=== PATIENT | male | born 1985 | race American Indian/Alaskan Native ===

== ENCOUNTER 2019-12-19 22:39 | Emergency (ER) | payer BC ==
[2019-12-20] MEDS ORDERED: dexAMETHasone 20 MG/5 ML VIAL IM ONE (01:57)
[2019-12-20] MEDS ORDERED: IBUPROFEN 800 MG TAB PO ONE (01:57)
[2019-12-20] MEDS ORDERED: AMOXICILLIN/K CLAV 875/125MG TAB PO ONE (01:57)
--- NOTE | 2019-12-20 02:32 | Emergency Department Report ---
- General Chief Complaint: Upper Respiratory Infection Stated Complaint: FEVER/COUGH Time Seen by Provider: 12/20/19 01:57 Source: patient Mode of arrival: Ambulatory Limitations: No Limitations - History of Present Illness Initial Comments: pt is a 34 y/o aam who presents for noc fever sore throat, and sinus pain presure. pt denies dizziness , no light headedness, no n/V , symptoms are exacerbated movement and position, syptoms are imprioved by nothing. , Complaint: cough, sore throat, rhinorrhea, nasal congestion, sinus pain Onset/Timin -: days(s) Severity: moderate Severity scale (0 -10): 5 Quality: aching Consistency: constant Improves With: nothing Worsens With: activity Context: sick contacts Associated Symptoms: fever, chills, myalgias, headache, rhinorrhea, nasal congestion, sore throat, cough. denies: nausea, vomiting, rash, confusion - Related Data Previous Rx's Medication Instructions Recorded Last Taken Type Amoxicillin/Potassium Clav 1 each PO BID 10 Days #20 tablet 12/20/19 Unknown Rx [Augmentin 875-125 Tablet] Benzocaine/Mentho [Cepacol X 1 each MM Q2H PRN #24 packet 12/20/19 Unknown Rx Strength] Ibuprofen [Motrin 800 MG tab] 800 mg PO Q8HR PRN #30 tablet 12/20/19 Unknown Rx predniSONE [Deltasone] 40 mg PO QDAY 5 Days #10 tab 12/20/19 Unknown Rx Allergies Allergy/AdvReac Type Severity Reaction Status Date / Time No Known Allergies Allergy Verified 11/05/14 10:58 ED Review of Systems ROS: Stated complaint: FEVER/COUGH Other details as noted in HPI Constitutional: chills, fever Eyes: denies: eye pain, eye discharge, vision change ENT: ear pain, throat pain, congestion Respiratory: cough, orthopnea, wheezing Cardiovascular: denies: chest pain, palpitations Endocrine: no symptoms reported Gastrointestinal: denies: abdominal pain, nausea, diarrhea Genitourinary: denies: urgency, dysuria Musculoskeletal: denies: back pain, joint swelling, arthralgia Skin: denies: rash, lesions Neurological: denies: headache, weakness, paresthesias Psychiatric: denies: anxiety, depression Hematological/Lymphatic: denies: easy bleeding, easy bruising ED Past Medical Hx - Past Medical History Hx Asthma: Yes (in childhood) - Surgical History Past Surgical History?: No - Social History Smoking Status: Never Smoker Substance Use Type: None - Medications Home Medications: Home Medications Medication Instructions Recorded Confirmed Last Taken Type Amoxicillin/Potassium Clav 1 each PO BID 10 Days #20 tablet 12/20/19 Unknown Rx [Augmentin 875-125 Tablet] Benzocaine/Mentho [Cepacol X 1 each MM Q2H PRN #24 packet 12/20/19 Unknown Rx Strength] Ibuprofen [Motrin 800 MG tab] 800 mg PO Q8HR PRN #30 tablet 12/20/19 Unknown Rx predniSONE [Deltasone] 40 mg PO QDAY 5 Days #10 tab 12/20/19 Unknown Rx ED Physical Exam - General Limitations: No Limitations General appearance: alert, in no apparent distress - Head Head exam: Present: atraumatic, normocephalic - Eye Eye exam: Present: normal appearance, PERRL, EOMI Pupils: Present: normal accommodation - Expanded ENT Exam Expanded Ear exam: Present: auricular hematoma TM/Canal exam: Erythema: Right TM, Left TM, Effusion: Left TM Teeth exam: Present: normal inspection Throat exam: Positive: tonsillar erythema, tonsillomegaly, tonsillar exudate. Negative: R peritonsillar mass, L peritonsillar mass - Respiratory Respiratory exam: Present: normal lung sounds bilaterally. Absent: respiratory distress - GI/Abdominal GI/Abdominal exam: Present: soft, normal bowel sounds - Rectal Rectal exam: Present: deferred - Extremities Exam Extremities exam: Present: normal inspection, full ROM, normal capillary refill. Absent: tenderness, joint swelling - Back Exam Back exam: Present: normal inspection, full ROM, CVA tenderness (R). Absent: tenderness, CVA tenderness (L), rash noted - Neurological Exam Neurological exam: Present: alert, oriented X3, CN II-XII intact, normal gait, reflexes normal. Absent: motor sensory deficit - Psychiatric Psychiatric exam: Present: normal affect, normal mood - Skin Skin exam: Present: warm, dry, intact, normal color. Absent: rash ED Course Vital Signs 12/19/19 12/19/19 22:49 22:50 Temperature 100.0 F H 102.2 F H Pulse Rate 119 H 116 H Respiratory 20 20 Rate Blood Pressure 118/67 Blood Pressure 118/67 [Right] O2 Sat by Pulse 94 99 Oximetry ED Medical Decision Making - Radiology Data Radiology results: report reviewed, image reviewed - Medical Decision Making cxr: normal, exam: pharyngitis, pt is tolering po intake. plan: ibuprofen , augmentin, orapred, Critical care attestation.: If time is entered above; I have spent that time in minutes in the direct care of this critically ill patient, excluding procedure time. ED Disposition Clinical Impression: Pharyngitis Qualifiers: Pharyngitis/tonsillitis etiology: streptococcus Qualified Code(s): J02.0 - Streptococcal pharyngitis Sinusitis Qualifiers: Sinusitis location: maxillary Chronicity: acute Recurrence: non-recurrent Qualified Code(s): J01.00 - Acute maxillary sinusitis, unspecified Disposition: TO HOME OR SELFCARE Is pt being admited?: No Does the pt Need Aspirin: No Condition: Good Instructions: Pharyngitis (ED), Upper Respiratory Infection in Children (ED) Prescriptions: Amoxicillin/Potassium Clav [Augmentin 875-125 Tablet] 1 each PO BID 10 Days #20 tablet Benzocaine/Mentho [Cepacol X Strength] 1 each MM Q2H PRN #24 packet PRN Reason: throat pain predniSONE [Deltasone] 40 mg PO QDAY 5 Days #10 tab Ibuprofen [Motrin 800 MG tab] 800 mg PO Q8HR PRN #30 tablet PRN Reason: pain Referrals: PRIMARY CARE, [Primary Care Provider] - 3-5 Days Forms: Work/School Release Form(ED) Time of Disposition: 02:47
[2019-12-20 02:46] VITALS: BP 130/71
== END 2019-12-20 02:56 | disposition home or self-care (01) ==
LOC: ED 22:39
DX: J01.00 Acute maxillary sinusitis, unspecified (principal); J02.0 Streptococcal pharyngitis; J45.909 Unspecified asthma, uncomplicated
CPT/HCPCS: 96372; 99282; J1100

== ENCOUNTER 2022-05-08 16:27 | Emergency (ER) | payer SELFPAY ==
--- NOTE | 2022-05-08 17:43 | XRay Report ---
CHEST 2 VIEWS INDICATION / CLINICAL INFORMATION: COUGH. COMPARISON: 06/04/20 FINDINGS: SUPPORT DEVICES: None. HEART / MEDIASTINUM: No significant abnormality. LUNGS / PLEURA: Interval development of subtle nodular and patchy parenchymal density in the left bon g base. No pneumothorax. ADDITIONAL FINDINGS: No significant additional findings. IMPRESSION: 1. Possible early left lung base pneumonia. Signer Name: Quinn Klein MD Signed: 05/08/2022 5:38 PM Workstation Name: [id number]
[2022-05-08] MEDS ORDERED: LIDOCAINE-MPF (1%) 10 MG/1 ML VIAL 5 ML INFILTRATI ONE (21:13)
--- NOTE | 2022-05-08 23:05 | Emergency Department Report ---
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 denies: rhinorrhea, nasal congestion, vomiting, diarrhea, right sweats, weight loss, hoarseness Treatments Prior to Arrival: none - Related Data Previous Rx's Medication Instructions Recorded Last Taken Type Amoxicillin/Potassium Clav 1 each PO BID 10 Days #20 tablet 12/20/19 Unknown Rx [Augmentin 875-125 Tablet] Benzocaine/Mentho [Cepacol X 1 each MM Q2H PRN #24 packet 12/20/19 Unknown Rx Strength] Ibuprofen [Motrin 800 MG tab] 800 mg PO Q8HR PRN #30 tablet 12/20/19 Unknown Rx predniSONE [Deltasone] 40 mg PO QDAY 5 Days #10 tab 12/20/19 Unknown Rx Ibuprofen [Motrin] 800 mg PO Q8HR PRN #30 tablet 06/04/20 Unknown Rx Lidocaine Viscous 2% 10 ml PO Q6H PRN #120 ml 06/04/20 Unknown Rx Penicillin V Potassium 500 mg PO Q6H #40 tablet 06/04/20 Unknown Rx methylPREDNISolone [Medrol 4MG 4 mg PO DAILY #40 tab.ds.pk 06/04/20 Unknown Rx DOSEPAK (21 tabs)] Albuterol Mdi (or & Nicu Only) 2 puff IH QID PRN #1 inhalation 05/08/22 Unknown Rx [ProAir HFA Inhaler] Azithromycin [Zithromax] 500 mg PO QDAY #5 tablet 05/08/22 Unknown Rx Benzonatate [Tessalon Perles] 100 mg PO Q8HR #20 capsule 05/08/22 Unknown Rx predniSONE [Deltasone] 50 mg PO QDAY #5 tab 05/08/22 Unknown Rx Allergies Allergy/AdvReac Type Severity Reaction Status Date / Time No Known Allergies Allergy Verified 05/08/22 16:50 ED Review of Systems ROS: Stated complaint: FEVER,COUGH Other details as noted in HPI Comment: All other systems reviewed and negative ED Past Medical Hx - Past Medical History Hx Asthma: Yes (in childhood) - Social History Smoking Status: Never Smoker Substance Use Type: None - Medications Home Medications: Home Medications Medication Instructions Recorded Confirmed Last Taken Type Amoxicillin/Potassium Clav 1 each PO BID 10 Days #20 tablet 12/20/19 Unknown Rx [Augmentin 875-125 Tablet] Benzocaine/Mentho [Cepacol X 1 each MM Q2H PRN #24 packet 12/20/19 Unknown Rx Strength] Ibuprofen [Motrin 800 MG tab] 800 mg PO Q8HR PRN #30 tablet 12/20/19 Unknown Rx predniSONE [Deltasone] 40 mg PO QDAY 5 Days #10 tab 12/20/19 Unknown Rx Ibuprofen [Motrin] 800 mg PO Q8HR PRN #30 tablet 06/04/20 Unknown Rx Lidocaine Viscous 2% 10 ml PO Q6H PRN #120 ml 06/04/20 Unknown Rx Penicillin V Potassium 500 mg PO Q6H #40 tablet 06/04/20 Unknown Rx methylPREDNISolone [Medrol 4MG 4 mg PO DAILY #40 tab.ds.pk 06/04/20 Unknown Rx DOSEPAK (21 tabs)] Albuterol Mdi (or & Nicu Only) 2 puff IH QID PRN #1 inhalation 05/08/22 Unknown Rx [ProAir HFA Inhaler] Azithromycin [Zithromax] 500 mg PO QDAY #5 tablet 05/08/22 Unknown Rx Benzonatate [Tessalon Perles] 100 mg PO Q8HR #20 capsule 05/08/22 Unknown Rx predniSONE [Deltasone] 50 mg PO QDAY #5 tab 05/08/22 Unknown Rx ED Physical Exam - General Limitations: No Limitations General appearance: alert, in no apparent distress - Head Head exam: Present: atraumatic, normocephalic, normal inspection - Eye Eye exam: Present: normal appearance, PERRL, EOMI Pupils: Present: normal accommodation - ENT ENT exam: Present: normal exam, mucous membranes moist. Absent: TM's normal bilaterally - Neck Neck exam: Present: normal inspection, full ROM - Respiratory Respiratory exam: Present: normal lung sounds bilaterally. Absent: respiratory distress, wheezes, rales, accessory muscle use, decreased breath sounds - Cardiovascular Cardiovascular Exam: Present: regular rate, normal rhythm. Absent: systolic murmur, diastolic murmur, rubs, gallop - GI/Abdominal GI/Abdominal exam: Present: soft, normal bowel sounds - Rectal Rectal exam: Present: deferred - Extremities Exam Extremities exam: Present: normal inspection - Back Exam Back exam: Present: normal inspection - Neurological Exam Neurological exam: Present: alert, oriented X3 - Psychiatric Psychiatric exam: Present: normal affect, normal mood - Skin Skin exam: Present: warm, dry, intact, normal color. Absent: rash ED Course Vital Signs 05/08/22 16:46 Temperature 99.9 F H Pulse Rate 105 H Respiratory 20 Rate Blood Pressure 154/102 [Right] O2 Sat by Pulse 96 Oximetry ED Medical Decision Making - Radiology Data Radiology results: report reviewed [facility] [address] [place] [address] XRay Report Signed Patient: MARIAN PARRA MR#: [id number] : 1985 Acct:[id number] Age/Sex: 37 / M ADM Date: 05/08/22 Loc: ED Attending Dr: Ordering Physician: ED MD TARAN Date of Service: 05/08/22 Procedure(s): XR chest routine 2V Accession Number(s): [id number] cc: ED DOCMD Fluoro Time In Minutes: CHEST 2 VIEWS INDICATION / CLINICAL INFORMATION: COUGH. COMPARISON: 06/04/20 FINDINGS: SUPPORT DEVICES: None. HEART / MEDIASTINUM: No significant abnormality. LUNGS / PLEURA: Interval development of subtle nodular and patchy parenchymal density in the left lung base. No pneumothorax. ADDITIONAL FINDINGS: No significant additional findings. IMPRESSION: 1. Possible early left lung base pneumonia. Signer Name: Quinn Klein MD Signed: 05/08/2022 5:38 PM Workstation Name: [id number] Transcribed By: DT Dictated By: Joey Klein MD Electronically Authenticated By: Joey Klein MD Signed Date/Time: 05/08/221737 DD/ 37 TD/TT: Print Cancel - Medical Decision Making This patient presents to the emergency department with fever and lower respiratory symptoms concerning for viral syndrome including flu and COVID-19. Chest x-ray did show the following pneumonia we maintain a normal saturation when ambulating at least 500 feet in the emergency department Patient has suspicion and is for COVID-19 infection. Differential diagnosis includes other viral causes of lower respiratory symptoms, pneumonia, asthma, bronchitis. Patient is well-appearing with acceptable vitals, lacks comorbidities admission and a reassuring physical examination and is safe to be discharged home nasal swab for COVID testing is recommended. Provide strict return precautions and instructions on self isolation/quarantine and anticipatory guidance. Critical care attestation.: If time is entered above; I have spent that time in minutes in the direct care of this critically ill patient, excluding procedure time. ED Disposition Clinical Impression: Pneumonia involving left lung Disposition: HOME / SELF CARE / HOMELESS Is pt being admited?: No Does the pt Need Aspirin: No Condition: Stable Instructions: Bacterial Pneumonia (ED), Community-Acquired Pneumonia, Adult, COVID-19: How to Protect Yourself and Others - CDC, COVID-19, COVID-19 Frequently Asked Questions Prescriptions: predniSONE [Deltasone] 50 mg PO QDAY #5 tab Albuterol Mdi (or & Nicu Only) [ProAir HFA Inhaler] 2 puff IH QID PRN #1 i nhalation PRN Reason: Shortness Of Breath Benzonatate [Tessalon Perles] 100 mg PO Q8HR #20 capsule Azithromycin [Zithromax] 500 mg PO QDAY #5 tablet Referrals: [facility] [Provider Group] - 3-5 Days SANDEE PHELAN MD [Staff Physician] - 3-5 Days
[2022-05-08 23:37] VITALS: BP 162/68
== END 2022-05-08 23:17 | disposition home or self-care (01) ==
LOC: ED 16:27
DX: J18.8 Other pneumonia, unspecified organism (principal); J45.909 Unspecified asthma, uncomplicated; Z79.899 Other long term (current) drug therapy
CPT/HCPCS: 71046; 96372; 99283; J0696; J3490